=== PATIENT | female | born 1950 | race Caucasian/White ===

== ENCOUNTER 2025-05-02 05:44 | Day surgery (SDC) | payer MEDICARE, OTHER ==
[~2025-05-02] VITALS: Ht 162.6 cm; Wt 102.2 kg
[~2025-05-02 05:44] MED LIST: CYCLOPENTOLATE HCL 1% 2 ML OPHTHALMIC SOLUTION ONE; KETOROLAC TROMETHAMINE 0.5% 5 ML OPHTHALMIC SOLUTION ONE; MOXIFLOXACIN HCL 0.5% 3 ML OPHTHALMIC SOLUTION ONE; PHENYLEPHRINE HCL 2.5% 2 ML OPHTHALMIC SOLUTION ONE; RINGERS SOLUTION,LACTATED 500 ML IV ONE; TETRACAINE HCL/PF 0.5% 4 ML OPHTHALMIC SOLUTION ONE; TROPICAMIDE 1% 3 ML OPHTHALMIC SOLUTION ONE
[2025-05-02] MEDS ORDERED: HYALURONATE SOD 8.5MG/0.85ML 10 MG/ML SYRINGE IO ONE (05:45)
[2025-05-02] MEDS ORDERED: PrednisoLONE ACETATE 1% 5 ML OPHTHALMIC SUSPENSION AD ONE (05:45)
[2025-05-02] MEDS ORDERED: ONDANSETRON HCL 4 MG/2 ML VIAL IVP ONE (05:45)
[2025-05-02] MEDS ORDERED: PrednisoLONE ACETATE 1% 5 ML OPHTHALMIC SUSPENSION ONE (06:22)
[2025-05-02] MEDS: KETOROLAC TROMETHAMINE 0.5% 5 ML OPHTHALMIC SOLUTION OD SCH (06:38)
[2025-05-02] MEDS: PROPARACAINE HCL 0.5% 15 ML OPHTHALMIC SOLUTION OD ONE (06:39)
[2025-05-02] MEDS: CYCLOPENTOLATE HCL 1% 2 ML OPHTHALMIC SOLUTION OD SCH (06:39)
[2025-05-02] MEDS: TETRACAINE HCL/PF 0.5% 4 ML OPHTHALMIC SOLUTION OD ONE (06:40)
[2025-05-02] MEDS: TROPICAMIDE 1% 3 ML OPHTHALMIC SOLUTION OD SCH (06:40)
[2025-05-02] MEDS: PHENYLEPHRINE HCL 2.5% 2 ML OPHTHALMIC SOLUTION OD SCH (06:40)
[2025-05-02] MEDS: MOXIFLOXACIN HCL 0.5% 3 ML OPHTHALMIC SOLUTION OD SCH (06:41)
[2025-05-02] MEDS: RINGERS SOLUTION,LACTATED 500 ML IV ONE (06:42)
[2025-05-02] MEDS: TETRACAINE HCL/PF 0.5% 4 ML OPHTHALMIC SOLUTION OD SCH (06:48)
[2025-05-02] MEDS: PROPARACAINE HCL 0.5% 15 ML OPHTHALMIC SOLUTION ONE (07:35)
[2025-05-02] MEDS: POVIDONE-IODINE 5% 30 ML OPHTHALMIC SOLUTION ONE (07:40)
[2025-05-02] MEDS: LIDOCAINE/PF 1% 2 ML VIAL ONE (07:45)
[2025-05-02] MEDS: EPINEPHrine 1:1,000 [1 MG/ML] VIAL ONE (07:45)
[2025-05-02] MEDS: NEOMYCIN/POLYMYXIN B/DEXAMETH 3.5 GM OPHTHALMIC OINTMENT ONE (08:03)
[2025-05-02] MEDS: BALANCED SALT 15 ML OPHTHALMIC IRRIG.SOLN ONE (11:57)
[2025-05-02] MEDS ORDERED: FentaNYL CITRATE PF 100 MCG/2 ML VIAL ONE (12:00)
[2025-05-02] MEDS ORDERED: MIDAZOLAM HCL 2 MG/2 ML VIAL ONE (12:00)
== END 2025-05-02 09:10 | disposition home or self-care (01) ==
LOC: SDS 05:44
PROVIDERS: ATTEND Ophthalmology
DX: E11.36 Type 2 diabetes mellitus with diabetic cataract (principal); H25.11 Age-related nuclear cataract, right eye; Z79.899 Other long term (current) drug therapy; Z79.82 Long term (current) use of aspirin; E11.9 Type 2 diabetes mellitus without complications; Z98.890 Other specified postprocedural states; Z87.01 Personal history of pneumonia (recurrent)
CPT/HCPCS: 65820; 93005; 66984; J0169; J3490; J2405; J7120; V2632; J2250; J3010

== ENCOUNTER 2025-07-04 05:56 | Day surgery (SDC) | payer MEDICARE, OTHER ==
[~2025-07-04] VITALS: Ht 162.6 cm; Wt 102.3 kg
[2025-07-04] MEDS: KETOROLAC TROMETHAMINE 0.5% 5 ML OPHTHALMIC SOLUTION OS SCH (07:07)
[2025-07-04] MEDS: CYCLOPENTOLATE HCL 1% 2 ML OPHTHALMIC SOLUTION OS SCH (07:07)
[2025-07-04] MEDS: RINGERS SOLUTION,LACTATED 500 ML IV ONE (07:07)
[2025-07-04] MEDS: PROPARACAINE HCL 0.5% 15 ML OPHTHALMIC SOLUTION OS ONE (07:07)
[2025-07-04] MEDS: TROPICAMIDE 1% 3 ML OPHTHALMIC SOLUTION OS SCH (07:07)
[2025-07-04] MEDS: MOXIFLOXACIN HCL 0.5% 3 ML OPHTHALMIC SOLUTION OS SCH (07:07)
[2025-07-04] MEDS: TETRACAINE HCL/PF 0.5% 4 ML OPHTHALMIC SOLUTION OS SCH (07:08)
[2025-07-04] MEDS: PHENYLEPHRINE HCL 2.5% 2 ML OPHTHALMIC SOLUTION OS SCH (07:08)
[2025-07-04] MEDS: TETRACAINE HCL/PF 0.5% 4 ML OPHTHALMIC SOLUTION OS ONE (07:17)
[2025-07-04 08:05] LABS: GLUCOMETER DEV NAME(LOC) SDS.; GLUCOSE,POINT OF CARE 152 MG/DL (70-110)
[2025-07-04] MEDS: POVIDONE-IODINE 5% 30 ML OPHTHALMIC SOLUTION ONE (08:50)
[2025-07-04] MEDS: BALANCED SALT 15 ML OPHTHALMIC IRRIG.SOLN ONE (08:55)
[2025-07-04] MEDS: EPINEPHrine 1:1,000 [1 MG/ML] VIAL ONE (08:55)
[2025-07-04] MEDS: LIDOCAINE/PF 1% 2 ML VIAL ONE (08:55)
[2025-07-04] MEDS: NEOMYCIN/POLYMYXIN B/DEXAMETH 3.5 GM OPHTHALMIC OINTMENT ONE (09:10)
[2025-07-04] MEDS: PrednisoLONE ACETATE 1% 5 ML OPHTHALMIC SUSPENSION ONE (09:10)
[2025-07-04] MEDS ORDERED: MIDAZOLAM HCL 2 MG/2 ML VIAL ONE (12:00)
[2025-07-04] MEDS ORDERED: FentaNYL CITRATE PF 100 MCG/2 ML VIAL ONE (12:00)
[2025-07-04] MEDS ORDERED: HYALURONATE SOD 8.5MG/0.85ML 10 MG/ML SYRINGE IO ONE (16:18)
[2025-07-04] MEDS ORDERED: HYALURONATE SOD/CHONDROITIN SOD 0.5 ML VIAL IO ONE (16:18)
== END 2025-07-04 10:10 | disposition home or self-care (01) ==
LOC: SDS 05:56
PROVIDERS: ATTEND Ophthalmology
DX: H25.12 Age-related nuclear cataract, left eye (principal); H40.1120 Primary open-angle glaucoma, left eye, stage unspecified; I44.4 Left anterior fascicular block; I10 Essential (primary) hypertension; E78.00 Pure hypercholesterolemia, unspecified; E11.9 Type 2 diabetes mellitus without complications; E66.9 Obesity, unspecified; Z79.4 Long term (current) use of insulin; Z79.84 Long term (current) use of oral hypoglycemic drugs; Z90.710 Acquired absence of both cervix and uterus; Z98.890 Other specified postprocedural states; Z68.38 Body mass index [BMI] 38.0-38.9, adult; Z88.5 Allergy status to narcotic agent; Z88.8 Allergy status to other drugs, medicaments and biological substances
CPT/HCPCS: 65820; 66984; 82962; 93005; J0169; J3010; J3490; J2250; J7120; V2632